=== PATIENT | male | born 2005 | race Hispanic/Latino ===

== ENCOUNTER 2024-03-18 22:46 | Emergency (ER) | payer OTHER ==
[~2024-03-18] VITALS: Ht 180.3 cm; Wt 108.9 kg
[2024-03-19] MEDS: NORCO, ANEXSIA 5/325MG TABLET (HYDROcodone/ACETAMINOPHEN) PO ONE (01:09)
[2024-03-19] MEDS ORDERED: HYDR-4571 PO (01:19)
[2024-03-19 01:47] VITALS: BP 123/65; TEMP 98.1; O2SAT 98
== END 2024-03-19 01:50 | disposition home or self-care (01) ==
LOC: M ED 22:46
DX: Z48.814 Encounter for surgical aftercare following surgery on the teeth or oral cavity (principal)